=== PATIENT | male | born 1935 | race Caucasian/White ===

== ENCOUNTER → 2016-07-24 | Outpatient (CLI) | payer MEDICARE, BC ==
[~2016-07-24] MED LIST: GADOBUTROL 7.5 MMOL/7.5 ML VIAL ONE
== END | disposition home or self-care (01) ==
LOC: CFH 11:23
PROVIDERS: ATTEND Internal Medicine Hematology & Oncology
DX: D32.0 Benign neoplasm of cerebral meninges (principal); C61 Malignant neoplasm of prostate; J32.9 Chronic sinusitis, unspecified; G31.9 Degenerative disease of nervous system, unspecified; I67.82 Cerebral ischemia; R90.82 White matter disease, unspecified
CPT/HCPCS: 70543; 70553; 82565; A9585

== ENCOUNTER 2016-10-30 15:45 | Inpatient (IN) | payer MEDICARE, BC ==
[~2016-10-30] VITALS: Ht 177.8 cm; Wt 88.7 kg
[2016-10-30] MEDS ORDERED: ONDANSETRON ODT 4 MG PO PRN (18:00)
[2016-10-30] MEDS ORDERED: ONDANSETRON 2MG/ML, 2ML IVPush PRN (18:00)
[2016-10-30] MEDS ORDERED: VITAMINS PO (18:07)
[2016-10-30] MEDS: ENOXAPARIN 40 MG/0.4 ML SQ SCH (19:37)
[2016-10-30 19:48] VITALS: BP 149/82
[2016-10-30] MEDS: ATORVASTATIN 20 MG TABLET PO SCH (21:34)
[2016-10-30 22:40] LABS: IS PT STATUS REG ER OR PRE ER? NO
[2016-10-31 01:55] VITALS: BP 137/76
[2016-10-31 01:55] LABS: PATH.CAST-FLAG NOT PRESENT; SPERM-FLAG NOT PRESENT; SRC-FLAG NOT PRESENT; XTAL-FLAG NOT PRESENT; YLC-FLAG NOT PRESENT
[2016-10-31 03:41] VITALS: BP 127/71
[2016-10-31 05:45] LABS: HEMATOCRIT 44.6 % (39.2-51.8); HEMOGLOBIN 14.9 g/dL (13.7-18.0); WHITE BLOOD COUNT 5.3 x10^3/uL (3.4-10)
[2016-10-31] MEDS ORDERED: ASPIRIN 81 MG TABLET EC PO SCH (06:00)
[2016-10-31 06:17] LABS: ASPARTATE AMINO TRANSFERASE 18 U/L (15-37); BLOOD UREA NITROGEN 14 mg/dL (7-18)
[2016-10-31 06:41] LABS: IS PT STATUS REG ER OR PRE ER? NO
[2016-10-31 07:20] VITALS: BP 123/66
[2016-10-31 10:54] LABS: IS PT STATUS REG ER OR PRE ER? NO
[2016-10-31 15:01] VITALS: BP 148/73
[2016-10-31] MEDS ORDERED: CEFUROXIME 500 MG TABLET PO SCH (16:30)
[2016-10-31] MEDS: ENOXAPARIN 40 MG/0.4 ML SQ SCH (18:20)
[2016-10-31 20:19] VITALS: BP 142/68
[2016-10-31] MEDS ORDERED: CEPHALEXIN 500 MG CAPSULE PO SCH (21:00)
[2016-10-31] MEDS: CEPHALEXIN 500 MG CAPSULE PO SCH (22:07)
[2016-10-31] MEDS: ATORVASTATIN 20 MG TABLET PO SCH (22:07)
[2016-10-31] MEDS: DABIGATRAN 150 MG CAPSULE PO SCH (22:08)
[2016-11-01 02:00] VITALS: BP 105/63
[2016-11-01] MEDS: CEPHALEXIN 500 MG CAPSULE PO SCH ×4 (05:51→21:51)
[2016-11-01 07:20] VITALS: BP 122/68
[2016-11-01] MEDS: DABIGATRAN 150 MG CAPSULE PO SCH ×2 (09:00→21:51)
[2016-11-01 14:00] VITALS: BP 136/68
[2016-11-01 20:54] VITALS: BP 120/67
[2016-11-01] MEDS: ATORVASTATIN 20 MG TABLET PO SCH (21:51)
[2016-11-02 01:54] VITALS: BP 117/74
[2016-11-02] MEDS: CEPHALEXIN 500 MG CAPSULE PO SCH ×2 (06:22→11:08)
[2016-11-02 07:49] VITALS: BP 129/72
[2016-11-02] MEDS ORDERED: LIDOCAINE-MPF 2% ,5ML ONE (08:37)
[2016-11-02] MEDS ORDERED: LIDOCAINE 2%, 20ML ONE (08:38)
[2016-11-02] MEDS: DABIGATRAN 150 MG CAPSULE PO SCH (11:08)
[2016-11-02] MEDS ORDERED: CEPH-376 PO (12:27)
[2016-11-02] MEDS ORDERED: DABI150C PO (12:27)
[2016-11-02] MEDS ORDERED: ATOR20TA9 PO (12:27)
== END 2016-11-02 14:59 | disposition home or self-care (01) | DRG 260 ==
LOC: ED 18:55 → EDIP 19:22 → 4EST 19:33 → DCLOUNGE 11-02 14:59
PROVIDERS: ADMIT Internal Medicine; ATTEND Internal Medicine
PROC: B24BZZ4 Ultrasonography of Heart with Aorta, Transesophageal (ICD-10-PCS; 2016-11-01)
PROC: 0JH602Z Insertion of Monitoring Device into Chest Subcutaneous Tissue and Fascia, Open Approach (ICD-10-PCS; principal; 2016-11-02)
DX: I48.91 Unspecified atrial fibrillation (principal); I63.40 Cerebral infarction due to embolism of unspecified cerebral artery; L03.116 Cellulitis of left lower limb; R47.01 Aphasia; G46.0 Middle cerebral artery syndrome; I89.0 Lymphedema, not elsewhere classified; I51.7 Cardiomegaly; H53.8 Other visual disturbances; R47.02 Dysphasia; I87.2 Venous insufficiency (chronic) (peripheral); R47.1 Dysarthria and anarthria; R73.9 Hyperglycemia, unspecified; Z85.46 Personal history of malignant neoplasm of prostate; Z80.1 Family history of malignant neoplasm of trachea, bronchus and lung
CPT/HCPCS: 33282; 36415; 70450; 70553; 80047; 80053; 80061; 81001; 82962; 83036; 83735; 84100; 84443; 84484; 85025; 93005; 93306; 93312; 93325; 93880; 99285; C1764; J1650; J3490